=== PATIENT | male | born 1975 | race Caucasian/White ===

== ENCOUNTER 2020-10-29 09:40 | Emergency (ER) | payer OTHER ==
[2020-10-29 09:44] VITALS: BP 138/91; PULSE 105; RESP 18; TEMP 99
--- NOTE | 2020-10-29 10:31 | ED ---
General Adult HPI - General Chief complaint: Headache Stated complaint: Headache, Chills Time Seen by Provider: 10/29/20 09:48 Source: patient, RN notes reviewed Mode of arrival: ambulatory Limitations: no limitations - History of Present Illness Initial comments: 44-year-old male presents emergency from chief complaint of chills headache bodyaches. Patient states symptoms started yesterday patient is concerned about possible covid. denies any significant cough congestion shortness breath abdominal pain or GI symptoms. No past medical history no medications no ALLERGIES. - Related Data Allergies Allergy/AdvReac Type Severity Reaction Status Date / Time No Known Allergies Allergy Verified 10/29/20 09:41 Review of Systems ROS Statement: Those systems with pertinent positive or pertinent negative responses have been documented in the HPI. ROS Other: All systems not noted in ROS Statement are negative. Past Medical History Past Medical History: No Reported History History of Any Multi-Drug Resistant Organisms: None Reported Past Surgical History: No Surgical Hx Reported Past Psychological History: No Psychological Hx Reported Smoking Status: Never smoker Past Alcohol Use History: Occasional Past Drug Use History: Marijuana General Exam Limitations: no limitations General appearance: alert, in no apparent distress Head exam: Present: atraumatic, normocephalic, normal inspection Eye exam: Present: normal appearance, PERRL, EOMI. Absent: scleral icterus, conjunctival injection, periorbital swelling ENT exam: Present: normal exam, mucous membranes moist Neck exam: Present: normal inspection, full ROM. Absent: tenderness, meningismus, lymphadenopathy Respiratory exam: Present: normal lung sounds bilaterally. Absent: respiratory distress, wheezes, rales, rhonchi, stridor Cardiovascular Exam: Present: regular rate, normal rhythm, normal heart sounds. Absent: systolic murmur, diastolic murmur, rubs, gallop, clicks Course Vital Signs 10/29/20 09:42 Temperature 99.0 F Pulse Rate 105 H Respiratory 18 Rate Blood Pressure 138/91 O2 Sat by Pulse 97 Oximetry Medical Decision Making - Medical Decision Making Patient has negative this time. Patient is still advised to quarantine if symptoms worsen. - Lab Data Lab Results 10/29/20 Range/Units 10:28 Coronavirus (PCR) Not Detected (Not Detectd) Disposition Clinical Impression: Encounter for laboratory testing for COVID-19 virus Disposition: HOME SELF-CARE Condition: Stable Instructions (If sedation given, give patient instructions): Acute Headache (E D) Additional Instructions: Please return to the Emergency Department if symptoms worsen or any other concerns. Is patient prescribed a controlled substance at d/c from ED?: No Referrals: [facility],Clinic [Primary Care Provider] - 1-2 days Time of Disposition: 11:48
== END 2020-10-29 11:55 | disposition home or self-care (01) ==
LOC: EC 09:40
DX: R51.9 Headache, unspecified (principal); R68.83 Chills (without fever); Z20.822 Contact with and (suspected) exposure to COVID-19
CPT/HCPCS: 87635; 99284

== ENCOUNTER → 2020-11-05 | Outpatient (CLI) | payer OTHER | END | disposition home or self-care (01) | LOC: LABWHC1 16:47 | PROVIDERS: ATTEND Family Medicine | DX: R09.81 Nasal congestion (principal) | CPT/HCPCS: U0003; C9803 ==